=== PATIENT | male | born 1975 | race Caucasian/White ===

== ENCOUNTER 2019-11-20 19:40 | Emergency (ER) | payer OTHER ==
[2019-11-20 19:51] VITALS: BP 138/95; PULSE 63; TEMP 97.6; BMI 30.4
--- NOTE | 2019-11-20 21:23 | PDOC ---
History of Present Illness - General Chief Complaint: Pain Stated Complaint: MRI REFFERAL- ABDOMIN Time Seen by Provider: 11/20/19 21:22 History Source: Patient Exam Limitations: No Limitations - History of Present Illness Initial Comments: 11/20/19 21:22 Steven Sidhu is a 44M with PMH DANN on CPAP presenting with epigastric pain. Intermittent epigastric pain last few months worse yesterday and today. Not associated with N/V, fever, chest pain, SOB, diarrhea. Seemingly unrelated to eating. No prior GI history. No recent trauma. Not currently having pain. Denies EtOH/drug/tobacco use. No sick contacts or spoiled food exposure. Seen at [facility] J[facility] and referred to [facility] ED for eval renal colic vs. GB pathology. Per [facility] report: WBC 5.10 / Hgb 13.6 / Hct 39.6% / Plt 227 Na 141 / K 3.5 / CO2 27 / Cl 103 / Glu 94 / BUN 15 / Cr 1.0 / Ca 9.5 / ALP 66 / ALT 66 / AST 28 / Alb 4.3 / TP 7.3 RUQ US: liver enlarged to 20cm, no biliary duct dilation, GB wall not thickened, no cholelithiasis, 0.5x0.3x0.4 and 0.3x0.3x0.3 polyps. CBD not dilated. Pancreas unremarkable. Past History - Medical History Allergies/Adverse Reactions: Allergies Allergy/AdvReac Type Severity Reaction Status Date / Time No Known Allergies Allergy Verified 11/20/19 19:50 Home Medications: Ambulatory Orders Sulfamethoxazole/Trimethoprim [Bactrim Ds -] 1 tab PO BID #14 tablet 11/21/19 COPD: No Other medical history: sleep apnea - Psycho-Social/Smoking History Smoking History: Never smoked - Substance Abuse Hx (Audit-C & DAST Scrn) How often the patient has a drink containing alcohol: 2-4 times / month Score: In Men: 4 or > Positive; In Women: 3 or > Positive: 2 Screen Result (Pos requires Nsg. Audit-10AR): Negative Review of Systems - Review of Systems Able to Perform ROS?: Yes Constitutional: No: Symptoms Reported HEENTM: No: Symptoms Reported Respiratory: No: Symptoms reported Cardiac (ROS): No: Symptoms Reported ABD/GI: Yes: Abdominal cramping. No: Constipated, Diarrhea, Nausea, Poor Appetite, Poor Fluid Intake, Vomiting : No: Symptoms Reported Musculoskeletal: No: Symptoms Reported Integumentary: No: Symptoms Reported Neurological: No: Symptoms reported Endocrine: No: Symptoms Reported Hematologic/Lymphatic: No: Symptoms Reported All Other Systems: Reviewed and Negative *Physical Exam - Vital Signs Last Vital Signs Temp Pulse Resp BP Pulse Ox 97.6 F 63 18 138/95 100 11/20/19 19:47 11/20/19 19:47 11/20/19 19:47 11/20/19 19:47 11/20/19 19:47 - Physical Exam General Appearance: Yes: Nourished, Appropriately Dressed. No: Apparent Distress HEENT: positive: EOMI, RADHA, Normal Voice, Symmetrical, Pharynx Normal, Hearing Grossly Normal. negative: Scleral Icterus (R), Scleral Icterus (L), Pharyngeal Erythema, Tonsillar Exudate, Tonsillar Erythema Neck: positive: Trachea midline, Normal Thyroid, Supple. negative: Tender, R igid, Decreased range of motion, Lymphadenopathy (R), Lymphadenopathy (L) Respiratory/Chest: positive: Lungs Clear, Normal Breath Sounds. negative: Chest Tender, Respiratory Distress, Accessory Muscle Use, Crackles, Rales, Rhonchi, Stridor, Wheezing Cardiovascular: positive: Regular Rhythm, Regular Rate. negative: Murmur Gastrointestinal/Abdominal: positive: Normal Bowel Sounds, Tender (epigastric), Flat, Soft. negative: Organomegaly, Pulsatile Mass, Distended, Guarding, Rebound Male Genitalia: positive: normal genitalia, normal prostate. negative: discharge, testicular tenderness, testicular mass, inguinal hernia, hernia, CVAT Musculoskeletal: positive: Normal Inspection. negative: CVA Tenderness, Decreased Range of Motion Extremity: positive: Normal Capillary Refill, Normal Inspection, Normal Range of Motion, Pelvis Stable. negative: Tender Integumentary: positive: Normal Color, Dry, Warm Neurologic: positive: Fully Oriented, Alert, Normal Mood/Affect, Normal Response ED Treatment Course - LABORATORY CBC & Chemistry Diagram: 11/20/19 22:21 11/20/19 22:21 - RADIOLOGY Radiograph Interpretation: 11/21/19 00:43 Christopher Ramey MD wrote on Nov 21, 2019 at 12:28 AM: Referring Physician: CHRIS WILLIAMSON Patient Name: STEVEN SIDHU THIS IS A PRELIMINARY REPORT DATE OF SERVICE: 2019-11-21 00:06:58 IMAGES: [id number] EXAM: CT abdomen without contrast and CT pelvis without contrast HISTORY: 44-year-old male assess for ureteral calculus COMPARISON: None. FINDINGS: No ureteral calculi. No hydronephrosis. Bilateral nonobstructing nephrolithiasis. Mild bilateral medullary nephrocalcinosis. Mild basilar atelectasis. Dependent density in the gallbladder most likely to sludge or cholelithiasis. Moderate gallbladder distention. Lack of intravenous contrast limits this exam. Mild 22 cm hepatomegaly. Mild 13 cm splenomegaly. Noncontrast evaluation liver pancreas spleen and adrenal glands otherwise appear unremarkable. Lack of oral contrast limits this exam. Noncontrast evaluation of the stomach small bowel and appendix appear unremarkable. No appendicitis. Diverticulosis. No diverticulitis. Calcified granulomas in the prostate suspicious for previous prostatitis infection. No free air. No free fluid. No abscess. Mild bladder wall thickening may be due to infectious cystitis. Moderate to severe degenerative disc disease in the lower lumbar spine. Moderate to severe degenerative joint disease of the lower CONFIDENTIALITY NOTICE: This information is intended only for the use of the recipient(s) named above. If you are not the intended recipient, or a person responsible for delivering it to the intended recipient, you are hereby notified that any disclosure, copying, distribution or use of any of the information contained in or attached to this transmission is STRICTLY PROHIBITED. If you have received this transmission in error, please immediately notify Imaging Professor Of Communication and destroy the original transmission and its attachments without saving them in any manner Please call 01/10 Support: [phone] ([phone]) with questions. Patient Information: : 1975 Order Type: Preliminary Name: NAHUM SERVIN Sex: M Study Description: CT ABDOMEN AND PELVIS Modality: CT Location: [facility] Referring Physician: CHRIS WILLIAMSON lumbar facets. Subcentimeter groin lymph nodes noted. IMPRESSION: No ureteral calculi. No hydronephrosis. Bilateral nonobstructing nephrolithiasis. Mild bilateral medullary nephrocalcinosis. Dependent density in the gallbladder most likely to sludge or cholelithiasis. Diverticulosis. Calcified granulomas in the prostate suspicious for previous prostatitis inf ection. Mild bladder wall thickening may be due to infectious cystitis. Moderate to severe degenerative disc disease in the lower lumbar spine. Moderate to severe degenerative joint disease of the lower lumbar facets. This CT exam was performed using one or more of the following dose reduction techniques: automated exposure control, adjustment of the mA and/or kV according to patient size, use of iterative reconstruction technique Medical Decision Making - Medical Decision Making 11/20/19 21:22 Patient presents with epigastric pain and no other significant PMH or risk factors for cardiac, urinary, or GB-related causes. Has outpatient GB US showing polyps without acute aime. Merits evaluation for pancreatitis vs. CT evidence of aime vs. gastritis. Ordering CBC/CMP/lipase/coags/ECG/CXR/UA/UC/CTAP with IV contrast. Labs unremarkable for pathology. UA shows increased bacteria with 1+ LE consistent with UTI. CXR unremarakble for pathology. ECG sinus jas with HR 56 QTc 391 no other concerning FRANCIS/D or TWI. CTAP preliminary report possible bladder wall thickening and prostate inflammation concerning for chronic prostatitis vs. UTI. Patient VSS and in NAD. Genital/prostate exam unrevealing, non-tender and no hernia or discharge. No abdominal pain at this time. Sending home with Abx and urology f/u. Discharge - Discharge Information Problems reviewed: Yes Clinical Impression/Diagnosis: Epigastric pain, Flank pain, Cystitis Condition: Stable Disposition: HOME - Additional Discharge Information Prescriptions: Sulfamethoxazole/Trimethoprim [Bactrim Ds -] 1 tab PO BID #14 tablet - Follow up/Referral Referrals: Laura Collins [Primary Care Provider] - Len Mccabe MD [Staff Physician] - - Patient Discharge Instructions Patient Printed Discharge Instructions: Kidney Stones -- Adult, Acute Cystitis - Post Discharge Activity
[2019-11-20] MEDS ORDERED: ACETAMINOPHEN 1000 MG/100 ML VIAL (NON FORMULARY) IVPB ONE (22:26)
[2019-11-20 22:42] LABS: BASO % 0.7 % (0-2.0); EOS % 2.5 % (0-4.5); HEMATOCRIT 36.3 % (35.4-49); HEMOGLOBIN 12.6 GM/dL (11.7-16.9); LYMPH % 47.3 % (8-40); MCH 27.8 pg (25.7-33.7); MCHC 34.6 g/dl (32.0-35.9); MEAN CELL VOLUME 80.4 fl (80-96); MEAN PLT VOLUME 9.1 fl (7.5-11.1); MONO % 7.6 % (3.8-10.2); NEUT % 41.9 % (42.8-82.8); PLATELET COUNT 188 K/MM3 (134-434); RBC 4.52 M/mm3 (4.00-5.60); RDW 13.6 % (11.9-15.9); WHITE BLOOD COUNT 4.8 K/mm3 (4.0-10.0)
[2019-11-20 22:53] LABS: INR 1.06 (0.83-1.09); PROTHROMBIN TIME (PATIENT) 12.5 SEC (9.7-13.0)
[2019-11-20 22:56] LABS: ACTIVATED PTT 36.8 SECONDS (25.2-36.5)
[2019-11-20] MEDS ORDERED: ACETAMINOPHEN INJECTION 100 ML IVPB ONE (22:58)
[2019-11-20 23:06] LABS: ALBUMIN 4.2 g/dl (3.4-5.0); BLOOD UREA NITROGEN 14.7 mg/dL (7-18); CALCIUM 8.9 mg/dL (8.5-10.1); CREATININE 0.9 mg/dL (0.55-1.3); POTASSIUM 3.5 mmol/L (3.5-5.1); TOT PROT 7.2 g/dl (6.4-8.2)
[2019-11-20 23:13] LABS: EPI CELLS 12 /uL (0-25.1); HYALINE CASTS 2 /uL (0-3.1); PH,URINE 5.5 (5.0-8.0); URINE APPEARANCE CLEAR; URINE BACTERIA 426 /uL (0-1359); URINE BILIRUBIN NEGATIVE (NEGATIVE); URINE COLOR YELLOW; URINE GLUCOSE (UA) NEGATIVE (NEGATIVE); URINE KETONE NEGATIVE (NEGATIVE); URINE LEUK ESTERASE 1+ (NEGATIVE); URINE NITRITE NEGATIVE (NEGATIVE); URINE PROTEIN NEGATIVE (NEGATIVE); URINE RBC 9 /uL (0-23.9); URINE UROBILINOGEN 0.2 mg/dL (0.2-1.0); URINE WBC 50 /uL (0-25.8)
--- NOTE | 2019-11-20 23:42 | PDOC ---
Documentation entered by Samra Sung SCRIBE, acting as scribe for Karly Priest MD. Karly Priest MD: This documentation has been prepared by the Pineda mcdonough Xhesika, SCRIBE, under my direction and personally reviewed by me in its entirety. I confirm that the documentation accurately reflects all work, treatment, procedures, and medical decision making performed by me. Attending Attestation - Resident Resident Name: ChicaLavell - ED Attending Attestation I have performed the following: I have examined & evaluated the patient, The case was reviewed & discussed with the resident, I agree w/resident's findings & plan, Exceptions are as noted - HPI HPI: 11/20/19 22:16 The patient is a 44y/o M with hx DANN on CPAP at night who presents to the ED for intermittent RUQ pain and R flank pain for several months, worsening yesterday. Pt was seen at [facility] today, had blood work and US which showed gallbladder polyps but no acute findings (report provided) and he was sent to ED for CT scan to r/o renal colic. UA at [facility] to show 2+ blood. Pt denies prior history of kidney stones or gallstones. Pt states he drinks 1-2 beers per night. Pt denies any other symptoms of fevers, chills, headache, dizziness, focal weakness/numbness, cp, sob, LE edema, hematuria. Allergies: NKDA - Physicial Exam PE: 11/20/19 23:40 Agree with resident exam - Medical Decision Making 11/20/19 23:40 44yo M hx DANN presents to the ED with RUQ and R flank pain Vitals wnl Exam with well appearing, comfortable pt and mild epigastric ttp, no rebo und/guarding/distention, neg hernandez sign DDx includes renal colic vs gastritis vs pancreatitis vs cholelithiasis REport from [facility] reviewed, reveals GB polyps but no stones and mildly enlarged liver Plan for labs, pain control, CTAP non con to eval for renal colic, reassess Discharge - Follow up/Referral Referrals: Laura Collins [Primary Care Provider] - - Patient Discharge Instructions - Post Discharge Activity
[2019-11-21] MEDS ORDERED: SULFAMETHOXAZOLE/TRIMETHOPRIM 800MG/160MG D.S. TABLET PO ONE (00:35)
--- NOTE | 2019-11-21 00:37 | PDOC ---
*Physical Exam - Vital Signs Last Vital Signs Temp Pulse Resp BP Pulse Ox 97.6 F 63 18 138/95 100 11/20/19 19:47 11/20/19 19:47 11/20/19 19:47 11/20/19 19:47 11/20/19 19:47 ED Treatment Course - LABORATORY CBC & Chemistry Diagram: 11/20/19 22:21 11/20/19 22:21 - ADDITIONAL ORDERS Additional order review: Laboratory Results 11/20/19 11/20/19 11/20/19 22:21 22:21 22:00 PT with INR 12.50 INR 1.06 PTT (Actin FS) 36.8 H Sodium 138 Potassium 3.5 Chloride 104 Carbon Dioxide 29 Anion Gap 5 L BUN 14.7 Creatinine 0.9 Est GFR (CKD-EPI)AfAm 121.67 Est GFR (CKD-EPI)NonAf 104.98 Random Glucose 84 Calcium 8.9 Total Bilirubin 1.0 AST 13 L ALT 18 Alkaline Phosphatase 59 Total Protein 7.2 Albumin 4.2 Urine Color Yellow Urine Appearance Clear Urine pH 5.5 Ur Specific [place] 1.015 Urine Protein Negative Urine Glucose (UA) Negative Urine Ketones Negative Urine Blood Negative Urine Nitrite Negative Urine Bilirubin Negative Urine Urobilinogen 0.2 Ur Leukocyte Esterase 1+ H Urine WBC (Auto) 50 Urine RBC (Auto) 9 Urine Casts (Auto) 2 U Epithel Cells (Auto) 12 Urine Bacteria (Auto) 426 11/20/19 22:21 RBC 4.52 MCV 80.4 MCHC 34.6 RDW 13.6 MPV 9.1 Neutrophils % 41.9 L Lymphocytes % 47.3 H Monocytes % 7.6 Eosinophils % 2.5 Basophils % 0.7 - Medications Given in the ED: ED Medications Discontinued Medications Generic Name Dose Route Start Last Admin Trade Name Freq PRN Reason Stop Dose Admin Acetaminophen 1,000 mg 11/20/19 22:26 11/20/19 22:57 Ofirmev Injection - IVPB 11/20/19 22:27 1,000 mg ONCE ONE Administration Medical Decision Making - Medical Decision Making 11/21/19 00:34 Patient Name: MALATHI SIDHU THIS IS A PRELIMINARY REPORT DATE OF SERVICE: 2019-11-21 00:06:58 IMAGES: [id number] EXAM: CT abdomen without contrast and CT pelvis without contrast HISTORY: 44-year-old male assess for ureteral calculus COMPARISON: None. FINDINGS: No ureteral calculi. No hydronephrosis. Bilateral nonobstructing nephrolithiasis. Mild bilateral medullary nephrocalcinosis. Mild basilar atelectasis. Dependent density in the gallbladder most likely to sludge or cholelithiasis. Moderate gallbladder distention. Lack of intravenous contrast limits this exam. Mild 22 cm hepatomegaly. Mild 13 cm splenomegaly. Noncontrast evaluation liver pancreas spleen and adrenal glands otherwise appear unremarkable. Lack of oral contrast limits this exam. Noncontrast evaluation of the stomach small bowel and appendix appear unremarkable. No appendicitis. Diverticulosis. No diverticulitis. Calcified granulomas in the prostate suspicious for previous prostatitis infection. No free air. No free fluid. No abscess. Mild bladder wall thickening may be due to infectious cystitis. Moderate to severe degenerative disc disease in the lower lumbar spine. Moderate to severe degenerative joint disease of the lower lumbar facets. Subcentimeter groin lymph nodes noted. IMPRESSION: No ureteral calculi. No hydronephrosis. Bilateral nonobstructing nephrolithiasis. Mild bilateral medullary nephrocalcinosis. Dependent density in the gallbladder most likely to sludge or cholelithiasis. Diverticulosis. Calcified granulomas in the prostate suspicious for previous prostatitis infection. Mild bladder wall thickening may be due to infectious cystitis. Moderate to severe degenerative disc disease in the lower lumbar spine. Moderate to severe degenerative joint disease of the lower lumbar facets. Pt has cystitis/old prostatitis. He needs to follow with PMD and urology. Discharge - Discharge Information Problems reviewed: Yes Clinical Impression/Diagnosis: Epigastric pain, Flank pain, Cystitis Condition: Stable - Admission No - Additional Discharge Information Prescriptions: Sulfamethoxazole/Trimethoprim [Bactrim Ds -] 1 tab PO BID #14 tablet - Follow up/Referral Referrals: Laura Collins [Primary Care Provider] - Len Mccabe MD [Staff Physician] - - Patient Discharge Instructions Patient Printed Discharge Instructions: Acute Cystitis, Kidney Stones -- Adult - Post Discharge Activity
[2019-11-21] MEDS ORDERED: SULFAMETHOXAZOLE/TRIMETHOPRIM 800MG/160MG D.S. TABLET ONE (00:52)
--- NOTE | 2019-11-23 11:33 | EKG ---
Test Reason : Blood Pressure : / mmHG Vent. Rate : 056 BPM Atrial Rate : 056 BPM P-R Int : 200 ms QRS Dur : 108 ms QT Int : 406 ms P-R-T Axes : -01 -25 015 degrees QTc Int : 391 ms SINUS BRADYCARDIA SEPTAL INFARCT , AGE UNDETERMINED ABNORMAL ECG NO PREVIOUS ECGS AVAILABLE Confirmed by ALE MOLINA MD ([id number]) on 11/23/2019 11:33:23 AM Referred By: Confirmed By:ALE MOLINA MD
== END 2019-11-21 01:30 | disposition home or self-care (01) ==
LOC: JER 19:40
PROC: 3E033NZ Introduction of Analgesics, Hypnotics, Sedatives into Peripheral Vein, Percutaneous Approach (ICD-10-PCS; principal; 2019-11-20)
DX: R10.13 Epigastric pain (principal)
CPT/HCPCS: 36415; 74176-TC; 80053; 81003; 85025; 85610; 85730; 87086; 93005; 93010; 99285-25; J0131